=== PATIENT | female | born 1935 | race African-American/Black ===

== ENCOUNTER → 2016-11-24 | Outpatient (CLI) | payer OTHER ==
--- NOTE | ~2016-11-24 | CR63 ---
[facility] A Service of [facility] RADIOLOGY TEXT RESULTS PATIENT: VIN STANTON LOCATION: [facility] : 35 UNIT #: [id number] AGE: [address]: Arun Barajas MD SEX: F ORDER DR: [id number] [facility] [address] [place], [place] [address] [id number] O MR#: [id number] Acc #: [id number] NAME: VIN STANTON : 1935 SEX: F STUDY DATE/TIME: 11/24/2016 16:47 UNIT: [facility] ROOM: STUDY DESCRIPTION: CR Chest 2 View Attending Physician: Arun Barajas Sr., M.D. Referring Physician: Arun Barajas Sr., M.D. Ordering Physician: Arun Barajas Sr., M.D. Primary Care Physician: Arun Barajas Sr., M.D. MEDICAL IMAGING REPORT This report is preliminary unless electronic signature is present EXAM Chest 2 views dated 11/24/2016 COMPARISON Single view chest dated 03/01/2009. HISTORY Positive PPD in 1950. Patient needed x-ray for pre-employment evaluation. History of hypertension. FINDINGS Two views of the chest were obtained. Stable left upper lobe calcified nodule suggestive of old granulomatous disease. It is stable in the last 8 years. No significant interval new or acute cardiopulmonary disease. Tortuosity of the aorta is seen. Heart is of normal size. Bones do not demonstrate any significant acute abnormality. Dictated by... Kourtney Willett M.D. THIS IS AN ELECTRONICALLY VERIFIED REPORT Kourtney Willett M.D. at 11/27/2016 5:22 PM CPR/mjs TD: 11/25/2016 10:51 JOB #: [id number] MEDICAL IMAGING REPORT [facility] A Service of [facility] RADIOLOGY TEXT RESULTS PATIENT: VIN STANTON LOCATION: [facility] : 35 UNIT #: [id number] AGE: [address]: Arun Barajas MD SEX: F ORDER DR: Page 1 of 1 COPY
== END | disposition home or self-care (01) ==
LOC: CRAD 15:49
DX: Z11.1 Encounter for screening for respiratory tuberculosis (principal)
CPT/HCPCS: 71020

== ENCOUNTER → 2016-12-02 | Outpatient (CLI) | payer OTHER ==
--- NOTE | ~2016-12-02 | MY29 ---
[facility] A Service of [facility] RADIOLOGY TEXT RESULTS PATIENT: VIN STANTON LOCATION: [facility] : 35 UNIT #: [id number] AGE: [address]: Arun Barajas MD SEX: F ORDER DR: [id number] [facility] [address]. [place], [place] [address] [id number] O MR#: [id number] Acc #: [id number] NAME: VIN STANTON : 1935 SEX: F STUDY DATE/TIME: 12/02/2016 13:44 UNIT: [facility] ROOM: STUDY DESCRIPTION: [facility] SCREENING W/ CAD BILAT Attending Physician: Arun Barajas Sr., M.D. Referring Physician: Arun Barajas Sr., M.D. Ordering Physician: Arun Barajas Sr., M.D. Primary Care Physician: Arun Barajas Sr., M.D. MEDICAL IMAGING REPORT This report is preliminary unless electronic signature is present EXAM Bilateral digital screening mammogram with CAD DATE 12/02/2016 HISTORY 81-year-old female with family history of breast cancer (relative not designated). No personal history of breast cancer or current complaints. COMPARISON Bilateral screening mammogram 11/26/2015, 11/20/2014. FINDINGS CC and MLO views were obtained of each breast utilizing digital technique and reviewed with an FDA-approved CAD device. Scattered fibroglandular densities are present bilaterally. No new or suspicious nodule is seen. Linear marker was placed over the superior right breast posterior third, denoting a surgical scar. No nodule, architectural distortion or suspicious clustered microcalcification is seen. IMPRESSION 1. BIRADS 1. Negative screening mammogram. Routine screening mammogram is recommended in one year. Patients over the age of 40 are entered into a reminder system with target due date for the next mammogram. A result letter will also be sent to the patient. BIRADS: 1 Negative [facility] A Service of [facility] RADIOLOGY TEXT RESULTS PATIENT: VIN STANTON LOCATION: [facility] : 35 UNIT #: [id number] AGE: [address]: Arun Barajas MD SEX: F ORDER DR: Dictated by... Amara Rucker M.D. THIS IS AN ELECTRONICALLY VERIFIED REPORT Amara Rucker M.D. at 12/04/2016 8:49 AM ALTAF/jovi TD: 12/02/2016 22:13 JOB #: [id number] MEDICAL IMAGING REPORT Page 1 of 1 COPY
== END | disposition home or self-care (01) ==
LOC: CWCC 11-28 11:45
DX: Z12.31 Encounter for screening mammogram for malignant neoplasm of breast (principal); Z80.3 Family history of malignant neoplasm of breast
CPT/HCPCS: G0202